=== PATIENT | female | born 1970 | race African-American/Black ===

== ENCOUNTER 2023-09-03 09:36 | Outpatient (CLI) | payer OTHER | END 2023-09-03 09:37 | disposition home or self-care (01) | LOC: SCSMRI 09:36 | PROVIDERS: ATTEND Radiology Radiation Oncology | DX: D44.4 Neoplasm of uncertain behavior of craniopharyngeal duct (principal); M89.9 Disorder of bone, unspecified; M47.814 Spondylosis without myelopathy or radiculopathy, thoracic region; G93.9 Disorder of brain, unspecified; Z98.890 Other specified postprocedural states | CPT/HCPCS: 70553; 72157 ==